=== PATIENT | male | born 1945 | race Caucasian/White ===

== ENCOUNTER 2017-08-09 09:55 | Observation (INO) ==
[2017-08-09 12:52] LABS: ABG HCO3 22.7 MMOL/L (20-26); ABG Oxygen Saturation 97.3 % (95-100); ABG PO2 85.9 MM HG (80-95); Allen Test Positive
[2017-08-09 13:52] LABS: Bilirubin,Total 1.9 MG/DL (0.2-1.0); Calcium 7.9 MG/DL (8.5-10.1); Osmolality,Calculated 245.8 MOS/KG (273-304); Potassium 3.8 MMOL/L (3.5-5.1); Total Protein 6.1 G/DL (6.4-8.3)
[2017-08-09 13:55] LABS: Basophils # 0.1 10*3/uL (0.0-0.2); Basophils % 0.9 % (0.0-0.8); Eosinophils # 0.9 10*3/uL (0.0-0.87); Eosinophils % 17.2 % (0.00-10.9); Hemoglobin 11.5 GM/DL (14.0-18.0); Immature Granulocytes % 0.2 %; Immature Granulocytes Absolute 0.01 #; Lymphocytes # 1.2 10*3/uL (1.4-4.0); Lymphocytes % 21.2 % (21.2-54.2); Mean Corpuscular HGB Conc 39.4 GM/DL (32-36); Mean Corpuscular Hemoglobin 36 PG (27-34); Mean Corpuscular Volume 92.1 FL (87-102); Mean Platelet Volume 9.8 FL (9.6-12.0); Monocytes # 0.6 10*3/uL (0.11-0.8); Monocytes % 11.4 % (1.7-12.7); Neutrophils # 2.7 10*3/uL (1.4-7.4); Neutrophils % 49.1 % (38.7-73.9); Platelet Count 98 T/CUMM (130-400); Red Blood Count 3.17 MC/CUMM (3.8-5.5); Red Cell Distribution Width 14.1 % (9.3-17.3); White Blood Count 5.4 T/CUMM (4-12)
[2017-08-09 14:01] LABS: Hematocrit 29.2 VOL% (42.0-52.0)
[2017-08-09 14:08] LABS: INR 1.2; PT Patient Result 12.5 SECS
[2017-08-09 14:18] LABS: Apearance,Urine CLEAR (Clear); Bilirubin,Urine Negative (Negative); Blood, Urine Small mg/dL (Negative); Glucose,Urine (UA) Negative (Negative); Ketones,Urine Negative (Negative); Mucus,Urine Occasional /LPF (Occasional); Nitrite,Urine Negative (Negative); Protein,Urine Negative; RBC,Urine 4 /HPF (0-4); Urine Color Yellow (Yellow); Urine Specific Gravity 1.014 (1.001-1.035); WBC,Urine <1 /HPF (0-6)
[2017-08-09 14:26] LABS: Eosinophils 21 % (0-10); Lymphocytes 12 % (20-55); Segmented Neutrophils 61 % (50-85); Total Cells Counted 100
[2017-08-09 14:28] LABS: Barbiturates Screen,Urine Negative (Negative); Benzodiazepines Screen,Urine Negative (Negative); Cannabinoid Screen,Urine Negative (Negative); Opiate Screen,Urine Negative (Negative); Phencyclidine Screen,Urine Negative (Negative)
[2017-08-09] MEDS ORDERED: MAGNESIUM SULF RIDER 2 GM in PREMIX 1 EACH IV STA (15:19)
[2017-08-09] MEDS ORDERED: ACETAMINOPHEN 325 MG TABLET PO PRN (17:18)
[2017-08-09] MEDS ORDERED: ONDANSETRON 4 MG/2 ML VIAL IV PRN (17:18)
[2017-08-09] MEDS ORDERED: LACTULOSE 20 GM/30 ML UDCUP PO PRN (17:33)
[2017-08-09] MEDS ORDERED: DEXTROSE 50% 25 GM/50 ML VIAL IV PRN (18:25)
[2017-08-09] MEDS ORDERED: GLUCAGON 1 MG VIAL IM PRN (18:25)
[2017-08-09] MEDS: SODIUM CHLORIDE 0.9% 1,000 ML IV SCH (18:51)
[2017-08-09] MEDS ORDERED: LAMIVUDI PO SCH (19:00)
[2017-08-09] MEDS ORDERED: DOLUTEGRAVIR PO SCH (19:00)
[2017-08-09] MEDS ORDERED: ABACAVIR PO SCH (19:00)
[2017-08-09] MEDS ORDERED: LEVOFLOXACIN INJ 500 MG in PREMIX 1 EACH IV SCH (21:00)
[2017-08-09] MEDS: RIFAXIMIN 550 MG TABLET PO SCH (21:10)
[2017-08-09] MEDS: methylPREDNISolone SOD SUC 40 MG/1 ML VIAL IV SCH (21:10)
[2017-08-09] MEDS: INSULIN LISPRO 100 UNIT/ML SUBCUT SCH (21:11)
[2017-08-09] MEDS: FLUTICASONE/SALMETEROL 250-50 DISKUS 14 DOSE INH SCH (21:12)
[2017-08-10] MEDS: methylPREDNISolone SOD SUC 40 MG/1 ML VIAL IV SCH ×2 (05:42→14:10)
[2017-08-10 07:06] LABS: Basophils % 0.3 % (0.0-0.8); Eosinophils % 0.3 % (0.00-10.9); Hemoglobin 11.6 GM/DL (14.0-18.0); Immature Granulocytes % 0.6 %; Immature Granulocytes Absolute 0.02 #; Lymphocytes # 0.4 10*3/uL (1.4-4.0); Lymphocytes % 11.8 % (21.2-54.2); Mean Corpuscular HGB Conc 39.6 GM/DL (32-36); Mean Corpuscular Hemoglobin 36 PG (27-34); Mean Corpuscular Volume 91.3 FL (87-102); Mean Platelet Volume 9.8 FL (9.6-12.0); Monocytes # 0.1 10*3/uL (0.11-0.8); Monocytes % 1.6 % (1.7-12.7); Neutrophils # 2.7 10*3/uL (1.4-7.4); Neutrophils % 85.4 % (38.7-73.9); Platelet Count 88 T/CUMM (130-400); Red Blood Count 3.21 MC/CUMM (3.8-5.5); Red Cell Distribution Width 14.2 % (9.3-17.3); White Blood Count 3.2 T/CUMM (4-12)
[2017-08-10 07:08] LABS: Hematocrit 29.3 VOL% (42.0-52.0)
[2017-08-10 07:10] LABS: Calcium 7.8 MG/DL (8.5-10.1); Osmolality,Calculated 256.1 MOS/KG (273-304); Potassium 4.1 MMOL/L (3.5-5.1)
[2017-08-10 07:20] LABS: Microcytosis 1+; Ovalocytes Few; Platelet Estimate Decreased
[2017-08-10] MEDS: INSULIN LISPRO 100 UNIT/ML SUBCUT SCH ×2 (08:04→11:46)
[2017-08-10] MEDS: FLUTICASONE/SALMETEROL 250-50 DISKUS 14 DOSE INH SCH (08:51)
[2017-08-10] MEDS: RIFAXIMIN 550 MG TABLET PO SCH (08:51)
[2017-08-10] MEDS ORDERED: DOXYCYCLINE HYCLATE 100 MG CAPSULE PO SCH (09:00)
[2017-08-10] MEDS: SODIUM CHLORIDE 0.9% 1,000 ML IV SCH (10:59)
[2017-08-10 11:53] VITALS: BP 110/68
[2017-08-11 14:31] LABS: Osmolality, Serum 250 mOsm/kg (275 - 295)
[2017-08-11 17:56] LABS: Osmolality, Urine 529 mOsm/kg (150 - 1150)
== END 2017-08-10 16:12 | disposition home or self-care (01) ==
LOC: N.ED 09:55 → INTOOBSV 17:18 → N.EDINP 17:18 → N.5E 19:39
PROVIDERS: ADMIT Internal Medicine; ATTEND Internal Medicine